=== PATIENT | male | born 1960 | race Caucasian/White ===

== ENCOUNTER 2020-08-17 09:28 | Emergency (ER) | payer OTHER ==
--- OUTSIDE RECORDS SUMMARY | 2020-08-17 09:31 | XMS REPORT | Summary of Care ---
:1960 Author Organization [facility] Address [address] [place] [id number] Care Team Providers Name Role Phone Charisma Rodriguez Primary Care Provider Reason for Referral (Routine) Status Reason Specialty Diagnoses / Referred By Referred To Procedures Contact Contact Closed Diagnostic Diagnoses Dysphagia, unspecified type Jensen, Radiology Procedures [place] MODIFIED BARIUM SWALLOW Aundrea J [address] [place] [address] Reason for Visit (Routine) Status Reason Specialty Diagnoses / Referred By Referred To Procedures Contact Contact Closed Diagnostic Diagnoses Dysphagia, unspecified type Jensen, Radiology Procedures [place] MODIFIED BARIUM SWALLOW Aundrea J [address] [place] [address] Encounter Details Date Type Department Care Team Description 08/16/2020 Hospital Encounter [facility] Arrived [facility] [address] [place], [place] [id number] [place] [phone] Allergies Not on Filedocumented as of this encounter (statuses as of 08/17/2020) Medications Not on filedocumented as of this encounter (statuses as of 08/17/2020) Active Problems Not on filedocumented as of this encounter (statuses as of 08/17/2020) Social History Tobacco Use Types Packs/Day Years Used Date Never Assessed Sex Assigned at Date Recorded Not on file COVID-19 Exposure Response Date Recorded In the last month, have you been in contact with No / Unsure 08/16/2020 1:21 PM CDT someone who was confirmed or suspected to have Coronavirus / COVID-19? documented as of this encounter Last Filed Vital Signs Not on filedocumented in this encounter Plan of Treatment Health Maintenance Due Date Last Done Comments HEPATITIS C (HCV) SCREEN 1960 Depression Screening 1971 DTaP,Tdap,and Td Vaccines (1 - 1978 Tdap) COLON CANCER SCREENING ANNUAL 2009 FIT/FOBT COLON CANCER SCREENING FIT DNA 2009 EVERY 3 YEARS COLON CANCER SCREENING 2009 SIGMOIDOSCOPY EVERY 5 YEARS COLONOSCOPY 2009 Colorectal Cancer Screening 2009 Zoster Recombinant Vaccine 2009 (SHINGRIX) (1 of 2) INFLUENZA VACCINE (#1) 2020 PNEUMOCOCCAL 0-64 YEARS COMBINED Aged Out No longer eligible based on SERIES patient's age to complete this topic documented as of this encounter Procedures Procedure Name Priority Date/Time Associated Diagnosis Comme nts [place] MODIFIED BARIUM Routine 08/16/2020 1:55 PM Dysphagia, Re sults for this SWALLOW CDT unspecified type procedure a re in the results section. documented in this encounter Results [place] MODIFIED BARIUM SWALLOW (08/16/2020 1:55 PM CDT) Specimen Narrative Performed At HISTORY: Dysphagia. PACS/VR/DOSE TECHNIQUE: Swallowing function was evalu ated with the patient sitting upright on chair, using video-assisted C-arm fluorosco py, in the presence of speech therapist. Swallowing function was evaluated using thin barium, thick barium, barium mixed with pudding, piece of edy cracker. FINDINGS: Swallowing function appeared n ormal. Patient was able to form bolus of food, initiation of swallowing without any si gnificant difficulty and the food material as well as barium flowed through the cervical esophagus without any obstruction or aspiration. Trans ient penetration of thin barium was noted on the surface of the aryepiglottic folds without aspiration into the larynx or trachea. CONCLUSIONS: Transient penetration of thin barium onto the surface of the aryepiglottic folds without aspiration i nto the larynx or trachea noted, otherwise normal dysphagiogram study. Procedure Note [facility], Radiant Results Inft User - 2019 2:03 PM CDT HISTORY: Dysphagia. TECHNIQUE: Swallowing function was evalu ated with the patient sitting upright on chair, using video-assisted C -arm fluoroscopy, in the presence of speech therapist. Swallowing function was evaluated using thin barium, thick barium, barium mixed with pudding, piece of edy cracker. FINDINGS: Swallowing function appeared n ormal. Patient was able to form bolus of food, initiation of swallowing without any significant difficulty and the food material as well as barium flowed through the cervical esophagus without any obstruction or asp iration. Transient penetration of thin barium was noted on the surface of the aryepiglottic folds without aspiration into the larynx or trachea. CONCLUSIONS: Transient penetration of th in barium onto the surface of the aryepiglottic folds without aspiration i nto the larynx or trachea noted, otherwise normal dysphagiogram study. Performing Organization Address City/State/Zipcode Phone Number PACS/VR/DOSE documented in this encounter Visit Diagnoses Diagnosis Dysphagia, unspecified type documented in this encounter documented as of this encounter
--- OUTSIDE RECORDS SUMMARY | 2020-08-17 09:31 | XMS REPORT | Clinical Summary ---
:1960 Author Organization [facility] Address [address] [place] [address] Care Team Providers Name Role Phone MD Michael Primary Care Provider Allergies Active Allergy Reactions Severity Noted Date Comments Penicillins Anaphylaxis High 12/31/2019 Shellfish Derived Other (See Comments) High 12/31/2019 's top breathing' Medications Medication Sig Dispensed Refills Start Date End Date Status bisoprolol (ZEBETA) 2.5 mg every 0 11/23/2019 Active 5 MG tablet morning. irbesartan (AVAPRO) every morning. 0 11/23/2019 Active 300 MG tablet simvastatin (ZOCOR) Take 40 mg by 0 Active 40 MG tablet mouth every morning. Xyosted 100 mg/0.5 INJECT 100 MG 2 mL 5 08/07/2020 Active mL auto-injector UNDER THE SKIN EVERY 7 DAYS MONOVISC 88 mg/4 mL 0 11/11/2019 0 Discontinued syringe keTOROlac (TORadol) Take 1 tablet 20 tablet 0 03/21/202003/28 10 mg tablet (10 mg total) by mouth every 6 (six) hours as needed for moderate pain for up to 7 days. testosterone Inject 100 mg 4 mL 0 06/21/2020 07/06/2020 D iscontinued enanthate (Xyosted) under the skin 100 mg/0.5 mL every 7 days. 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 04/21/2020 Travel 04/05/2020 Office Visit Urology Eusebio Meredith, Hypogonadism male (Primary Dx) 04/05/2020 Travel 03/21/2020 Surgery Urology Eusebio Meredith, PENILE PLICA TION 03/21/2020 Anesthesia Event Urology Taiwo Castillo, Tali Nunez, ART INSTRUCTOR 03/21/2020 Hospital Encounter Urology Eusebio Meredith Peyron ie disease (Primary Dx) 03/10/2020 Pre-Admit Testing Pre-Admission Eusebio Meredith, Preop testing Appointment Testing (Primary Dx) 03/10/2020 Travel 02/09/2020 Telephone Urology Eusebio Meredith MD 12/31/2019 Pre-Admit Testing Pre-Admission Eusebio Meredith, Preop testing Appointment Testing (Primary Dx) 12/31/2019 Office Visit Urology Eusebio Meredith Peyronie dis ease (Primary Dx); Male erectile d ysfunction, unspecified 11/23/2019 Transcribe Orders Urology Eusebio Meredith, Male er ectile MD dysfunction, unspecified (Pr imary Dx) after 08/17/2019 Surgical History Surgery Date Site/Laterality Comments KNEE SURGERY 11/03/2015 - 11/02/2016 Left fracture a nd ligament repair BIOPSY, PENIS 03/21/2020 N/A Procedure: PENIL E PLICATION; Surgeon: Eusebio Meredith MD; Location: [facility] IN OR; Service: Urology; Latera lity: N/A; Medical History Medical History Date Comments Hypercholesteremia Hypertension Arthritis Exercises 3 to 4 times per week rowing 3 -4x/wk x 15 mins/denies chest pain/sob Anesthesia NHAP/NFHAP Family History Relation Name Status Comments Father Mother Alive Social History Tobacco Use Types Packs/Day Years Used Date Never Smoker Smokeless Tobacco: Never Used Alcohol Use Drinks/Week oz/Week Comments Yes moderate drinker Sex Assigned at Date Recorded Not on file COVID-19 Exposure Response Date Recorded In the last month, have you been in contact with No / Unsure 07/24/2020 10:58 AM CDT someone who was confirmed or suspected to have Coronavirus / COVID-19? Last Filed Vital Signs Vital Sign Reading Time Taken Comments Blood Pressure 138/86 03/21/2020 11:13 AM CDT Pulse 59 03/21/2020 11:13 AM CDT Temperature 36.2 C (97.1 F) 03/21/2020 11:13 AM CDT Respiratory Rate 19 03/21/2020 11:13 AM CDT Oxygen Saturation 98% 03/21/2020 11:13 AM CDT Inhaled Oxygen Concentration - - Weight 96.8 kg (213 lb 8 oz) 03/21/2020 6:44 AM CDT Height 177.8 cm (5' 10") 03/10/2020 1:09 PM CDT Body Mass Index 30.63 03/10/2020 1:09 PM CDT Plan of Treatment Date Type Specialty Care Team Description 09/06/2020 Office Visit [facility]rology [facility]eredith [facility] [address] [facility] [address] [place], [place] [address] [phone] Health Maintenance Due Date Last Done Comments COLONOSCOPY SCREENING 2009 SHINGLES VACCINES (#1) 2009 INFLUENZA VACCINE 06/03/2020 Procedures Procedure Name Priority Date/Time Associated Diagnosis Comme nts PROLACTIN LEVEL Routine 04/21/2020 2:55 Male hypogonadism Res ults for this PM CDT procedure are i n the results section. FSH AND LH Routine 04/21/2020 2:55 Male hypogonadism Result s for this PM CDT procedure are i n the results section. PSA, TOTAL AND FREE Routine 04/21/2020 2:55 Benign localized Results for this PM CDT hyperplasia of procedure are in prostate with the results urinary retention section. CBC WITH PLATELET AND Routine 04/21/2020 2:55 Male hypogonadi sm Results for this DIFFERENTIAL PM CDT procedure are i n the results section. ESTRADIOL LEVEL Routine 04/21/2020 2:55 Male hypogonadism Res ults for this PM CDT procedure are i n the results section. TESTOSTERONE LEVEL, Routine 04/21/2020 2:55 Male hypogonadism Results for this FREE AND TOTAL, MALE PM CDT procedu re are in the results section. TESTOSTERONE LEVEL, Routine 04/05/2020 3:19 Hypogonadism male Results for this FREE AND TOTAL, MALE PM CDT procedu re are in the results section. OH AN ELECTIVE Routine 03/21/2020 8:12 Results f or this ENDOTRACHEAL AIRWAY AM CDT procedur e are in the results section. BIOPSY, PENIS 03/21/2020 7:58 Peyronie's disease AM CDT Case Notes REQ 1430 START, EST 1 HR Special Needs REQ 1430 START, EST 1 HR COVID BIOREF (NCOVB) Routine 03/10/2020 1:25 PM Preop testing Results for this CDT procedure are i n the results section. ESTIMATED GFR Routine 03/10/2020 1:02 PM Results for this CDT procedure are i n the results section. URINALYSIS SCREEN AND Routine 03/10/2020 1:02 PM Preop testin g Results for this MICROSCOPY, WITH REFLEX CDT proc edure are in TO CULTURE the results section. PARTIAL THROMBOPLASTIN Routine 03/10/2020 1:02 PM Preop testi ng Results for this TIME (PTT) CDT procedure are i n the results section. PROTHROMBIN TIME WITH Routine 03/10/2020 1:02 PM Preop testin g Results for this INR CDT procedure are i n the results section. COMPREHENSIVE METABOLIC Routine 03/10/2020 1:02 PM Preop test ing Results for this PANEL CDT procedure are i n the results section. HC COMPLETE BLD COUNT Routine 03/10/2020 1:02 PM Preop testin g Results for this W/AUTO DIFF CDT procedure are i n the results section. URINE CULTURE Routine 03/10/2020 1:02 PM Results for this CDT procedure are i n the results section. ECG PRE/POST OP Routine 12/31/2019 9:58 AM Preop testing Resu lts for this GUEST RELATIONS OFFICER procedure are i n the results section. URINE CULTURE Routine 12/31/2019 9:50 AM Results for this GUEST RELATIONS OFFICER procedure are i n the results section. ESTIMATED GFR Routine 12/31/2019 9:44 AM Results for this GUEST RELATIONS OFFICER procedure are i n the results section. PROTHROMBIN TIME WITH Routine 12/31/2019 9:44 AM Preop testin g Results for this INR GUEST RELATIONS OFFICER procedure are i n the results section. PARTIAL THROMBOPLASTIN Routine 12/31/2019 9:44 AM Preop testi ng Results for this TIME (PTT) GUEST RELATIONS OFFICER procedure are i n the results section. URINALYSIS SCREEN AND Routine 12/31/2019 9:44 AM Preop testin g Results for this MICROSCOPY, WITH REFLEX GUEST RELATIONS OFFICER proc edure are in TO CULTURE the results section. COMPREHENSIVE METABOLIC Routine 12/31/2019 9:44 AM Preop test ing Results for this PANEL GUEST RELATIONS OFFICER procedure are i n the results section. CBC HEMOGRAM Routine 12/31/2019 9:44 AM Preop testing Results for this GUEST RELATIONS OFFICER procedure are i n the results section. after 08/17/2019 Results FSH and LH (04/21/2020 2:55 PM CDT) Pathologist [facility] Luteinizing hormone 2.9 1.7 - 8.6 mIU/mL [facility] Follicle stimulating 3.1 1.5 - 12.4 mIU/mL [facility] hormone Specimen Blood Narrative Performed At Performed at: [address] [place] [address] [id number] Field Marketing Associate: Kevin Guillaume MD, Phone: [phone] Performing Organization Address [facility] Phon e Number [facility] Prolactin level (04/21/2020 2:55 PM CDT) Pathologist [facility] Prolactin 5.8 4.0 - 15.2 ng/mL [facility] Specimen Blood Narrative Performed At Performed at: [address] [place] [address] [id number] Field Marketing Associate: Kevin Guillaume MD, Phone: [phone] Performing Organization Address [facility] Phon e Number [facility] Estradiol level (04/21/2020 2:55 PM CDT) Pathologist [facility] Estradiol 9.6Comment: Miller ECLIA 7.6 - 42.6 pg/mL [facility] methodology Specimen Blood Narrative Performed At Performed at: [address] [place] [address] [id number] [phone] Field Marketing Associate: Kevin Guillaume MD, Phone: [phone] Performing Organization Address [facility] Phon e Number [facility] CBC with platelet and differential (04/21/2020 2:55 PM CDT)Only the most recent of2 resultswithin the time period is included. Pathologist Sig nature WBC 5.2 3.4 - 10.8 x10E3/uL [facility] RBC 4.54 4.14 - 5.80 x10E6/uL [facility] HGB 14.7 13.0 - 17.7 g/dL [facility] HCT 42.7 37.5 - 51.0 % [facility] MCV 94 79 - 97 fL [facility] MCH 32.4 26.6 - 33.0 pg [facility] MCHC 34.4 31.5 - 35.7 g/dL [facility] RDW 12.9 11.6 - 15.4 % [facility] Platelet count 193 150 - 450 x10E3/uL [facility] Neutrophils 57 Not Estab. % [facility] Lymphocytes 28 Not Estab. % [facility] Monocytes 9 Not Estab. % [facility] Eosinophils 5 Not Estab. % [facility] Basophils 1 Not Estab. % [facility] Neutrophils, absolute 3.0 1.4 - 7.0 x10E3/uL [facility] Lymphocytes, absolute 1.4 0.7 - 3.1 x10E3/uL [facility] Monocytes, absolute 0.5 0.1 - 0.9 x10E3/uL [facility] Eosinophils, absolute 0.3 0.0 - 0.4 x10E3/uL [facility] Basophils, absolute 0.0 0.0 - 0.2 x10E3/uL [facility] Immature granulocytes 0 Not Estab. % [facility] Immature grans (abs) 0.0 0.0 - 0.1 x10E3/uL [facility] Specimen Blood Narrative Performed At Performed at: 01 [facility] [address] [place], [place] [phone] Field Marketing Associate: Kevin Guillaume MD, Phone: [phone] Performing Organization Address City/State/ZIP Code Phon e Number [facility] Testosterone level, free and total, male (04/21/2020 2:55 PM CDT)Only the most recent of2 resultswithin the time period is included. Testosterone 230 (L) 264 - 916 [facility] Comment: ng/dL Adult male reference interval is based on a population of healthy nonobese males (BMI <30) between 19 and 39 yea rs old. Medina et.al. JCEM 2017,102;1353-5403. PMID: 321766 03. Testosterone, free 4.2 (L) 6.6 - 18.1 [facility] 02 pg/mL Specimen Blood Narrative Performed At Performed at: - [facility] [place], [place] [address] 143 Field Marketing Associate: Kevin Guillaume MD, Phone: [phone] Performed at: 02 - [address] [id number] Field Marketing Associate: Barry Roblero MD, Phone: [phone] Performing Organization Address City/State/ZIP Code Phon e Number [facility] 02 PSA, total and free (04/21/2020 2:55 PM CDT) PSA 0.7 0.0 - 4.0 [facility] Comment: ng/mL Miller ECLIA methodology. According to the [place] [employer], Seru m PSA should decrease and remain at undetectable levels after radic al prostatectomy. The AUA defines biochemical recurrence as an initial PSA value 0.2 ng/mL or greater followed by a subsequen t confirmatory PSA value 0.2 ng/mL or greater. Values obtained with different assay methods or kits c annot be used interchangeably. Results cannot be interpreted as abso lute evidence of the presence or absence of malignant disease. PSA, free 0.25Comment: Miller N/A ng/mL [facility] ECLIA methodology. PSA, free percent 35.7 % [facility] Comment: The table below lists the probability of prostate canc er for men with non-suspicious DELIO results and total PSA betw een 4 and 10 ng/mL, by patient age (Andrea et al, STARLA 1 998, 279:1542). % Free PSA 50-64 y r 65-75 yr 0.00-10.00% 56% 55% 10.01-15.00% 24% 35% 15.01-20.00% 17% 23% 20.01-25.00% 10% 20% >25.00% 5% 9% Please note: Andrea et al did not make specific recommendations regarding the use of percent free PSA for any other po pulation of men. Specimen Blood Narrative Performed At Performed at: - [facility] [place], [place] [id number] 143 Field Marketing Associate: Kevin Guillaume MD, Phone: [phone] Performing Organization Address City/State/ZIP Code Phon e Number [facility] Airway (03/21/2020 8:12 AM CDT) Narrative Performed At Brynn Hernandez 03/21/2020 8:12 AM Airway Performed by: Brynn Hernandez Authorized by: Taiwo Castillo DO Location: OR Urgency: Elective Difficult Airway: No Performed by: resident/MANAGER SUMMER/AA Preoxygenated with 100% O2: Yes Mask Ventilation: Assisted mask Final Airway Type: Endotracheal airway Final Endotracheal Airway: ETT Cuffed: Yes Technique Used: Video laryngoscopy Devices/Methods Used in Placement: Int ubating stylet Insertion Site: Oral Blade Type: Nael Laryngoscope Blade/Videolaryngoscope Matthias de Size: 3 ETT Size (mm): 8.0 Cuff at minimum occlusion pressure: Yes Measured from: Lips ETT to Lips (cm): 23 Placement Verified by: CO2 detection, di rect visualization and equal breath sounds Laryngoscopic view: Grade I - full vie w of glottis Number of Attempts at Approach: 2 COVID BioRef (NCOVB) (03/10/2020 1:25 PM CDT) Pathologist [facility] COVAL BioRef Not Detected [facility] Comment: Source Nasopharyngeal Swab Testing performed at [facility] [address] [place] [address] NOTE: Please consider re-collection of a new specimen, if clinically indicated. NOTE: The COVID-19 assay has been cleared by the U.S. Food and Drug Administration under the Emergency Use Authorization ( EUA). [facility] is designated as a high complexity labora tory by the Clinical Laboratory Improvement Amendments of 1988(CLIA) and is qualified to perform this test. ASSAY INFORMATION: Real Time RT-PCR Specimen Nasopharyngeal Performing Organization Address City/[facility]/ZIP Code Phon e Number [facility] DEPARTMENT OF PATHOLOGY [address] [place] [address] AND [facility] [address] [place] [phone] Urinalysis screen and microscopy, with reflex to culture (03/10/2020 1:02 PM CDT)Only the most recent of2 resultswithin the time period is included. Pathologist Sig nature Specimen site Clean catch [facility] Color, UA Yellow [facility] Appearance, UA Clear [facility] Specific gravity, 1.027 1.001 - 1.035 [facility] pH, UA 6.0 5.0 - 8.5 [facility] Protein, UA Negative Negative [facility] Glucose, UA Negative Negative [facility] Ketones, UA Negative Negative [facility] Bilirubin, UA Negative Negative [facility] Blood, UA Negative Negative [facility] Nitrite, UA Negative Negative [facility] Urobilinogen, UA 2.0 (A) <2.0 [facility] Leukocyte esterase, Negative Negative [facility] WBC, UA <1 0 - 1 /HPF [facility] RBC, UA <1 0 - 5 /HPF [facility] Bacteria, UA Few None seen [facility] Yeast, UA None seen [facility] Yeast with None seen [facility] pseudohyphae, HOSPITAL Specimen Urine Performing Organization Address City/[facility] Phon e Number [facility] DEPARTMENT OF PATHOLOGY AND [address] [place] [phone] Estimated GFR (03/10/2020 1:02 PM CDT)Only the most recent of2 resultswithin the time period is included. Estimated GFR 88 mL/min/1.73 [facility] Comment: m2 HOSPITAL Catergory Units Interpretation G1 >=90 Normal or high G2 60-89 Mildly decreased G3a 45-59 Mildly to moderately decreas ed G3b 30-44 Moderately to severely decre ased G4 15-29 Severely decreased G5 <15 Kidney failure The eGFR was calculated using the Chronic Kidney Disea se Epidemiology Collaboration (CKD-EPI) equation. Interpretation is based on recommendations of the National Kidney Foundation-Kidney Disease Outcomes [place]rb[place] lity Initiative (NKF-KDOQI) published in 2014. Specimen Performing Organization Address City/[facility] Phon e Number [facility] DEPARTMENT OF PATHOLOGY AND [address] [place], [place] [phone] [address] [address] Partial thromboplastin time, activated (03/10/2020 1:02 PM CDT)Only the most recent of2 resultswithin the time period is included. PTT 25.2 23.0 - 36.0 [facility] Comment: [facility] PTT therapeutic range for unfractionated heparin is 61.0-112.0 seconds which corresponds to Anti-Xa 0.3-0.7 U/ml. Specimen Blood Performing Organization Address City/[facility]/ZIP [facility] Phon e Number [facility] DEPARTMENT OF PATHOLOGY AND [address] [place] [phone] Prothrombin time with INR (03/10/2020 1:02 PM CDT)Only the most recent of2 resultswithin the time period is included. Pathologist [facility] Prothrombin time 12.9 11.5 - 14.5 [facility] INR 1.0 [place] Comment: ENEDINA The International Normalized Ratio (INR) is a therapeu [facility] monitoring tool for patients who are stable on oral anticoagulant therapy. An INR of 2.0-3.0 is suggested for deep vein thrombosis/pulmonary embolism. Specimen Blood Performing Organization Address City/[facility] Phon e Number [facility] DEPARTMENT OF PATHOLOGY AND [address] [place] [phone] Urine culture (03/10/2020 1:02 PM CDT)Only the most recent of2 resultswithin the time period is included. Pathologist Sig nature Urine culture SEE COMMENTComment: [facility] Bacteriuria screen HOSPITAL negative. Specimen Performing Organization Address City/[facility] Phon e Number [facility] DEPARTMENT OF PATHOLOGY AND [address] [place] [phone] Comprehensive metabolic panel (03/10/2020 1:02 PM CDT)Only the most recent of2 resultswithin the time period is included. Pathologist [facility] Sodium 141 135 - 148 [facility] mEq/L [facility] Potassium 4.1 3.5 - 5.0 [facility] mEq/L [facility] Chloride 104 98 - 112 [facility] mEq/L [facility] CO2 21 (L) 24 - 31 mEq/L [facility] Anion gap 16@ANIO (H) 7 - 15 mEq/L [facility] BUN 15 8 - 23 mg/dL [facility] Creatinine 0.94 0.70 - 1.20 [facility] mg/dL HOSPITAL Glucose 97 65 - 99 mg/dL [facility] Calcium 9.6 8.8 - 10.2 [facility] mg/dL [facility] Protein 6.9 6.3 - 8.3 [facility] Comment: g/dL HOSPITAL - 4.6-7.0 g/dL 1 week 4.4-7.6 g/dL 7 months-1year 5.1-7.3 g/dL 1-2 years 5.6-7.5 g/dL >3 years 6.0-8.0 g/dL 18-150 6.3-8.3 g/dL Albumin 4.0 3.5 - 5.0 [facility] g/dL HOSPITAL A/G ratio 1.4 0.7 - 3.8 [facility] Alkaline phosphatase 74 40 - 129 U/L [facility] AST 22 10 - 50 U/L [facility] ALT 30 5 - 50 U/L [facility] Total bilirubin 0.4 0.0 - 1.2 [facility] mg/dL HOSPITAL Specimen Blood Performing Organization Address City/[facility] Phon e Number [facility] DEPARTMENT OF PATHOLOGY AND [address] [place] [phone] GENOMIC MEDICINE [address] [address] ECG Pre/Post Op (12/31/2019 9:58 AM GUEST RELATIONS OFFICER) Pathologist Sig nature Ventricular rate 49 [facility] Atrial rate 49 [facility] OH interval 236 [facility] QRSD interval 96 [facility] QT interval 454 [facility] QTC interval 410 [facility] P axis 1 57 [facility] QRS axis 1 16 [facility] T wave axis 31 [facility] EKG impression Marked sinus [facility] MUSE bradycardia with 1st degree AV block-Abnormal ECG-No previous ECGs available-Electronicall y Signed By Swapnil ABDI, Didier Olivas ([id number]) on 12/31/2019 12:05:23 PM Specimen Narrative Performed At This result has an attachment that is no t available. Performing Organization Address [facility] Phon e Number [facility] [address] [place] [address] CBC hemogram (12/31/2019 9:44 AM GUEST RELATIONS OFFICER) Pathologist Sig nature WBC 4.67 4.50 - 11.00 k/uL [facility] RBC 4.59 4.40 - 6.00 m/uL [facility] HGB 14.8 14.0 - 18.0 g/dL [facility] HCT 43.7 41.0 - 51.0 % [facility] MCV 95.2 82.0 - 100.0 fL [facility] MCH 32.2 27.0 - 34.0 pg [facility] MCHC 33.9 31.0 - 37.0 g/dL [facility] RDW - SD 43.3 37.0 - 55.0 fL [facility] MPV 10.2 8.8 - 13.2 fL [facility] Platelet count 201 150 - 400 k/uL [facility] Nucleated RBC 0.00 /100 WBC [facility] Specimen Blood Performing Organization Address City/State/ZIP Code Phon e Number [facility] DEPARTMENT OF PATHOLOGY AND [address] [place] [phone] GENOMIC MEDICINE [address] [address] after 08/17/2019 (Home) [place] [address] Advance Directives For more information, please contact: [phone] Type Date Recorded Patient Contract Attorney Explanati on Advance Directives, Living Will and Medical Power of Education Consultant
--- OUTSIDE RECORDS SUMMARY | 2020-08-17 09:31 | XMS REPORT | Summary of Care ---
:1960 Author Organization [facility] - Health Address [address] [place] [id number] Care Team Providers Name Role Phone Charisma Rodriguez Primary Care Provider Reason for Visit Reason Comments Speech Therapy Encounter Details Date Type Department Care Team Description 08/16/2020 Ancillary Visit [facility] Speech Luis Barboza MD [address] [place] [address] Problems with Therapy- [place] Anne Ng, AIR TRAFFIC CONTROL OPERATOR [address] [place] [address] swallowing and Professional Office masticat ion (Primary Building Dx) [address] [place] [address] [address] [place] [address] Allergies Not on Filedocumented as of this encounter (statuses as of 08/16/2020) Medications Not on filedocumented as of this encounter (statuses as of 08/16/2020) Active Problems Not on filedocumented as of this encounter (statuses as of 08/16/2020) Social History Tobacco Use Types Packs/Day Years [...] Signs Not on filedocumented in this encounter Progress Notes Anne Ng, AIR TRAFFIC CONTROL OPERATOR - 08/16/2020 2:30 PM CDTModified Barium Swallow Speech-Language Pathology Services Jimi Santillan : 1960 Age: [age] year old Sex: male LEVI: 08/16/2020 Time In/Out: [id number] Referring Physician: Aundrea Jensen MD Date of Referral: 08/07/2020 Medical Diagnosis: dysphagia, unspecified Reason for Referral: r/o aspiration; objectively evaluate the oropharyngeal swallow with imaging SUBJECTIVE: Patient ambulated independently to upright stationary chair. HE reports some instances over the past year of having immediate choking sensation. He describes one instance of waking up to get a glass of water in the night and feeling his throat "tighten and cut off" immediately; he had difficulty catching his breath after this. Sometimes this sensation is relieved if he spits out liquids.He also reports sensation of food sticking in his sternal area. OBJECTIVE: Jimi Santillan was seen for modified barium swallow study (MBS). Patient is a 59 year old male with no significant PMH. Pertinent Imaging: No final results containing an impression from the past 30 days were found. Previous AIR TRAFFIC CONTROL OPERATOR Services/Swallow History: None No past medical history on file. No past surgical history on file. General Behavior: Alert and Cooperative Hearing: Within Functional Limits for speech Oral Mechanism: Structure: dentate, natural dentition and moist oral mucosa Function: Unremarkable - no facial droop/weakness, no subjective trismus, symmetric labial spread and pucker, lingual protrusion midline with equal lateralization, symmetrical palatal retraction, no dysphonia, no dysarthria, no apraxia Respiratory Status: room air Orientation/Cognition: - Patient oriented to: person, place, time and situation - Response type: verbal - If verbal, describe speech: clear - Follows 1-step commands: Yes EVALUATION: Patient presented with barium in thin liquids, nectar-thick liquids, puree and chewable solid consistencies viewed under fluoroscopy in the lateral plane with Dr. Gloria from radiology. COMPONENTS AND SCORES ORAL IMPAIRMENT Component 1-Lip Closure: 0= No labial escape Component 2-Tongue Control During Bolus Hold: 2= Posterior escape of less than half of bolus Component 3-Bolus Preparation/Mastication: 0= Timely & efficient chewing and mashing Component 4-Bolus Transport/Lingual Motion: 0= Brisk tongue action Component 5-Oral Residue: 2= Residue collection on oral structures and Location C= Tongue Component 6-Initiation of Pharyngeal Swallow: 0= Bolus head at posterior angle of ramus (first hyoidexcursion) with solids and 1= Bolus head in valleculae with liquids PHARYNGEAL IMPAIRMENT Component 7-Soft Palate Elevation: 0= No bolus between soft palate (SP)/pharyngeal wall (PW) Component 8-Laryngeal Elevation: 0= Complete superior movement of thyroid cartilage with complete approximation of arytenoids to epiglottic petiole Component 9-Anterior Hyoid Excursion: 0= Complete anterior movement Component 10-Epiglottic Movement: 1= Partial inversion Component 11-Laryngeal Vestibular Closure-Height Swallow: 1= Incomplete; narrow column air/contrast in laryngeal vestibule Component 12-Pharyngeal Stripping Wave: 0= Present - complete Component 13-Pharyngeal Contraction (A/P view only): NA Component 14-Pharyngoesophageal Segment Openin= Complete distension and complete duration; no obstruction of flow Component 15-Tongue Base (TB) Retraction: 1= Trace column of contrast or air between TB and PW Component 16-Pharyngeal Residue: 2= Collection of residue within or on pharyngeal structures and LOCATION A: Tongue Base ESOPHAGEAL IMPAIRMENT Component 17-Esophageal Clearance Upright Position: 1= Esophageal retention seen with purees PENETRATION/ASPIRATION thin liquid: Penetration occurred: intermittent, flash, to the supraglottic space, during the swallow and mild amount. Aspiration did not occur: N/A PAS: 2-enters the airway, remains above vocal folds and is ejected nectar thick liquid: Penetration did not occur: N/A. Aspiration did not occur: N/A PAS: 1-material does not enter airway puree: Penetration did not occur: N/A. Aspiration did not occur: N/A PAS: 1- material does not enter airway chewable solids: Penetration did not occur: N/A. Aspiration did not occur: N/A PAS: 1-material does not enter airway Penetration/Aspiration Scale Legend: 1-material does not enter airway 2-enters the airway, remains above vocal folds and is ejected 3-enters the airway, remains above vocal cords and is not ejected 4-enters the airway, contacts the vocal folds and is ejected 5-enters the airway, contacts the vocal folds and is not ejected 6-enters the airway, passes below the vocal folds and is ejected into the larynx or out of the airway 7-enters the airway, passes below the vocal folds and is not ejected from the trachea despite effort 8-enters the airway, passes below the vocal folds and no effort is made to eject FACILITATIVE TECHNIQUES ATTEMPTED: N/A Images/loops available for review in PACS. Patient/Family Education: Provided verbally. Reviewed MBS loops/images. Discussed findings of evaluation, recommendations and AIR TRAFFIC CONTROL OPERATOR plan of care. Patient/family verbalized understanding and is in agreement with plan of care. Patient/Family Goal: safe po intake and improved swallow function ASSESSMENT: Jimi Santillan presents with mild oropharyngeal dysphagia of unknown etiology with primary impairment in both airway protection and pharyngeal efficiency. Patient had decreased lingual control, resulting in posterior escape of less than half of liquid boluses and masticated materials, and more than half of puree bolus. Patient also had decreased bolus control, resulting in oral stasis on tongue which required cued secondary swallow to clear. Patient demonstrated delay in swallow initiation to the valleculae with thin and nectar-thick liquids; swallow initiation of purees and masticated materials appeared timely. Patient demonstrated good hyolaryngeal elevation. However, he had delayed and reduced epiglottic inversion, which resulted in penetration of thin liquids above the vocal folds (PAS 2). Penetration cleared spontaneously. Patient tolerated nectar-thick liquids, purees, and masticated materials with no penetration/aspriration (PAS 1). Decreased lingual control resulted in pharyngeal stasis on the base of the tongue with all materials, which cleared with cued, secondary swallow. Patient appears safe to continue PO diet as detailed below. Impressions: mild oropharyngeal dysphagia, single instance of penetration with thin liquids (PAS 2). Prognosis is good for safe po intake with adherence to swallow precautions due to above findings. PLAN: 1. Recommend patient continue a regular-textured diet with thin liquids and swallow precautions: sitfully upright/chair, small single sips/bites, limit distractions while eating/drinking and remain upright for 30 minutes after meals No further AIR TRAFFIC CONTROL OPERATOR needs, this service is signing off. Please re-consult if indicated, thank you. Anne Ng MS, [facility]-AIR TRAFFIC CONTROL OPERATOR Speech-Language Pathologist Phone/Text # [phone] documented in this encounter Plan of Treatment Health [...] this topic documented as of this encounter Results Not on filedocumented in this encounter Visit Diagnoses Diagnosis Problems with swallowing and mastication - Primary documented in this encounter documented as of this encounter
--- OUTSIDE RECORDS SUMMARY | 2020-08-17 09:32 | XMS REPORT | Continuity of Care Document ---
:1960 Author Organization [facility] t Address [address] [place] [address] Care Team Providers Name Role Phone Michael ABDI Primary Care Physician Radiology Attending Clinician Unavailable Hernandez RIVERA Attending Clinician Unavailable Viri ABDI Attending Clinician Sha LEUNG Attending Clinician Unavailable Anna BRUNER Attending Clinician Mark Tim APRN Attending Clinician VIRI Admitting Clinician Unavailable Payers Payer Name Policy Type Policy Effective Date Expiration Date Sour ce Number AETNAAETNA [id number] [employer], 00:00:00 Confucianism ALAN/[id number] /-Present O Problems This patient has no known problems. Allergies, Adverse Reactions, Alerts Allergy Allergy Status Severity Reaction(s) Onset Inactive Treating Comm ents Source Name Type Date Date Clinician Penicill Propensi Active Anaphylaxis 2019-0 [place] to 2-28 Methodi adverse 00:00: st reaction 00 s to drug Shellfis Propensi Active Other (See 'stop [place] to Comments) 2-28 breathing Meth marguerite Derived adverse 00:00: ' st reaction 00 s to drug Social History Social Habit Start Date Stop Date Quantity Comments Source Sex Assigned At [facility] ethodist Exposure to Not sure [place] Metho dist SARS-CoV-2 (event) Tobacco use and 2020-04-21 2020-04-21 Never used [facility] ethodist exposure 00:00:00 00:00:00 Alcohol intake 2020-04-21 2020-04-21 Current drinker [place] [facility] 00:00:00 00:00:00 of alcohol (finding) Alcohol Comment 2019-12-31 2019-12-31 moderate drinker Daryl ston Confucianism 00:00:00 00:00:00 Smoking Status Start Date Stop Date Source Never smoker [facility] [facility] t Medications Ordered Filled Start Stop Current Ordering Indication Dosage Frequency Signature Comments Components Source Medication Medication Date Date Medication? Clinician (SIG) Name Name Eben 100 2019-11 Yes INJECT 100 [place] mg/0.5 mL 0-05 MG UNDER Method i auto-inject 00:00: THE SKIN st or 00 EVERY 7 DAYS Xyosted 100 2020- No INJECT Daryl ston mg/0.5 mL 9 10-05 100MG (ONE Met hodi auto-inject 00:00: 00:00 AUTO-INJEC st or 00 :00 TOR) UNDER THE SKIN ONCE WEEKLY testosteron 2019- No 100mg Q1W Inject 100 [place] e enanthate 06-21 09-03 mg under Met hodi (Xyfloydd) 00:00: 00:[address] 100 mg/0.5 00 :00 every 7 mL days. auto-inject or simvastatin Yes 40mg QD Take 40 mg [place] (ZOCOR) 40 6-03 by mouth Metho di MG tablet 14:01: every st 39 morning. keTOROlac 2019- No 10mg Q6H Take 1 [place] (TORadol) 03-21 05-26 tablet (10 Met hodi 10 mg 00:00: 23:59 mg total) st tablet 00 :00 by mouth every 6 (six) hours as needed for moderate pain for up to 7 days. bisoprolol 2019- Yes 2.5mg QD 2.5 mg [place] (ZEBETA) 5 - every Methodi MG tablet 00:00: morning. st 00 irbesartan 2019-0 Yes QD every [place] (AVAPRO) - morning. Methodi 300 MG 00:00: st tablet 00 MONOVISC 88 2019- No [place] mg/4 mL 11-11 Methodi syringe 00:00: 00:00 st 00 :00 Vital Signs Vital Name Observation Time Observation Value Comments Source Systolic blood 2020-03-21 11:13:22 138 mm[Hg] [place] [facility]ucianism pressure Diastolic blood 2020-03-21 11:13:22 86 mm[Hg] [place] [facility]ian[facility] pressure Heart rate 2020-03-21 11:13:22 59 /min Terence Akers Body temperature 2020-03-21 11:13:22 36.17 Temitope [place] [facility]ism Respiratory rate 2020-03-21 11:13:22 19 /min [place] [facility] Oxygen saturation in 2020-03-21 11:13:22 98 /min Terence Akers Arterial blood by Pulse oximetry Body weight 2020-03-21 06:44:00 96.843 kg Terence Akers BMI 2020-03-21 06:44:00 30.63 kg/m2 Terence Akers Body height 2020-03-10 13:09:00 177.8 cm Terence Akers Procedures Procedure Date / Time Performing Clinician Source Performed TESTOSTERONE LEVEL, FREE 2020-04-21 14:55:00 Max Meredith AND TOTAL, MALE ESTRADIOL LEVEL 2020-04-21 14:55:00 Max Meredith CBC WITH PLATELET AND 2020-04-21 14:55:00 Max Meredith DIFFERENTIAL PSA, TOTAL AND FREE 2020-04-21 14:55:00 Max Meredith FSH AND LH 2020-04-21 14:55:00 Max Meredith PROLACTIN LEVEL 2020-04-21 14:55:00 Max Meredith TESTOSTERONE LEVEL, FREE 2020-04-05 15:19:00 Max Meredith AND TOTAL, MALE DE AN ELECTIVE 2020-03-21 08:12:12 Brynn Hernandez ENDOTRACHEAL AIRWAY Cat BIOPSY, PENIS 2020-03-21 07:58:00 Max Meredith COVID BIOREF (NCOVB) 2020-03-10 13:25:00 Max Meredith URINE CULTURE 2020-03-10 13:02:00 Max Meredith HC COMPLETE BLD COUNT 2020-03-10 13:02:00 Max Meredith W/AUTO DIFF COMPREHENSIVE METABOLIC 2020-03-10 13:02:00 Viri, Max [place] [facility] PANEL PROTHROMBIN TIME WITH INR 2020-03-10 13:02:00 Max Meredith PARTIAL THROMBOPLASTIN 2020-03-10 13:02:00 Max Meredith on Confucianism TIME (PTT) URINALYSIS SCREEN AND 2020-03-10 13:02:00 Max Meredith Confucianism MICROSCOPY, WITH REFLEX TO CULTURE ESTIMATED GFR 2020-03-10 13:02:00 Max Meredith Meth oddanielle ECG PRE/POST OP 2019-12-31 09:58:28 Max Meredith Meth odist URINE CULTURE 2019-12-31 09:50:00 Max Meredith CBC HEMOGRAM 2019-12-31 09:44:00 Max Meredith oddanielle COMPREHENSIVE METABOLIC 2019-12-31 09:44:00 Max Meredith Confucianism PANEL URINALYSIS SCREEN AND 2019-12-31 09:44:00 Max Meredith Confucianism MICROSCOPY, WITH REFLEX TO CULTURE PARTIAL THROMBOPLASTIN 2019-12-31 09:44:00 Max Meredith on Confucianism TIME (PTT) PROTHROMBIN TIME WITH INR 2019-12-31 09:44:00 Max Meredith Confucianism ESTIMATED GFR 2019-12-31 09:44:00 Max Meredith Meth oddanielle Plan of Care Planned Activity Planned Date Details Comments Source Future Scheduled 2020-06-03 INFLUENZA VACCINE [place] [facility] Test 00:00:00 [code = INFLUENZA VACCINE] Future Scheduled 2009 COLONOSCOPY SCREENING Mike rodriguez Confucianism Test 00:00:00 [code = COLONOSCOPY SCREENING] Future Scheduled 2009 SHINGLES VACCINES [place] [facility] Test 00:00:00 (#1) [code = SHINGLES VACCINES (#1)] Encounters Start End Encounter Admission Attending Care Care Encounter Source Date/Time Date/Time Type Type Clinicians Facility Department ID 2020-08-16 2020-08-16 [facility] Radiology [facility] [id number] 13:00:00 23:59:00 Encounter Sharon [id number] [place] [id number] [place] [id number] 2020-08-16 2020-08-16 [id number] 15:21:10 16:06:10 Visit Anne Cho [id number] Jerzy [id number] Jho[place] [id number] [facility] 145 [facility] 2020-04-21 2020-04-21 Outpatient VIRI, [facility] [id number] [place] 00:00:00 00:00:[address] MAX [address] 2020-04-05 2020-04-05 Outpatient VIRI, [facility] [id number] [place] 00:00:00 00:00:00 MAX [address] 2020-03-21 2020-03-21 [id number] [place] 00:00:00 00:00:[address] MAX [address] 2020-03-10 2020-03-10 [facility] [id number] [place] 00:00:00 00:00:00 MAX [address] 2019-12-31 2019-12-31 Outpatient VIRI, [facility] [id number] 691 [place] 00:00:00 00:00:00 MAX [address] 2019-12-31 2019-12-31 [facility] [id number] 064 [place] 00:00:00 00:00:[address] MAX [address] Results Test Description Test Time Test Comments Results Result Comments Source Testosterone level, free and total, male 2020-04-27 09:08:00 Test Item Value Reference Range Interpretation Comme nts Testosterone (test code = 230 ng/dL 264-916 L Ad ult male reference interval 2986-8) is based on a p opulation ofhealthy nonob sandee males (BMI <30) between 19 and 39 years old.lima Haney t.al. JCEM 2017,102;1161-1 173. PMID: 73356668. Testosterone, free (test 4.2 pg/mL 6.6-18.1 L code = 2991-8) JOHN (test code = JOHN) Performed at: 01 - [facility] [address] [id number] Director: Kevin Guillaume MD, Phone: [phone] at: 02 - [facility] [address] [place], [place] [id number] Director: Barry Roblero MD, Phone: [phone] Lab Interpretation (test Abnormal code = 22072-9) [place] MethodistPSA, total and [id number] 10:09:00 Test Item Value Reference Range Interpretation Comments PSA (test code 0.7 ng/mL 0-4 Miller ECLIA = 2857-1) methodology.Acc ording to the [place] [employer], Se rum PSA shoulddecrease and remain at undet ectable levels after radicalprostate ctomy. The AUA defines biochemical rec urrence as an initialPS A value 0.2 ng/mL or gr eater followed by a subsequent confirmatoryPSA value 0.2 ng/mL or greater.Values obtained with different assay methods or kits cannot be usedinterchange ably. Results cannot be interpreted as absolute eviden ceof the presence or absence of jael gnant disease. PSA, free (test 0.25 ng/mL N/A Miller ECLIA code = 76500-7) methodology. PSA, free 35.7 % The table below lists percent (test the probabilit y of code = 01919-9) prostate can cer formen with non-suspic ious DELIO results and total PSA between4 an d 10 ng/mL, by patie nt age (Andrea et al , STARLA 1998,279:1542). % Arun e PSA 50-64 yr 65-75 yr 0.00-10.00% 56% 55% 10.01-15.00% 24% 35% 15.01-20.00% 17% 23% 20.01-25.00% 10% 20% >25.00% 5% 9%Plea se note: Andrea et al did not make sp ecific recommendations regarding the u se of perc ent free PSA for an y other population of men. JOHN (test code Performed at: 01 = JOHN) - [facility] [address] [place], [place] [id number] Director: Kevin Guillaume MD, Phone: [phone] [place] [facility] with platelet and [id number] 10:09:00 Test Item Value Reference Range Interpretation Comments WBC (test code = 5.2 3.4- 10.8 x10E3/uL 6690-2) RBC (test code = 4.54 4.14- 5.80 x10E6/uL 789-8) HGB (test code = 14.7 g/dL 13-17.7 718-7) HCT (test code = 42.7 % 37.5-51 4544-3) MCV (test code = 94 fL 79-97 787-2) MCH (test code = 32.4 pg 26.6-33 785-6) MCHC (test code = 34.4 g/dL 31.5-35.7 786-4) RDW (test code = 12.9 % 11.6-15.4 788-0) Platelet count (test 193 150- 450 x10E3/uL code = 777-3) Neutrophils (test code 57 % Not Estab. = 770-8) Lymphocytes (test code 28 % Not Estab. = 736-9) Monocytes (test code = 9 % Not Estab. 5905-5) Eosinophils (test code 5 % Not Estab. = 713-8) Basophils (test code = 1 % Not Estab. 706-2) Neutrophils, absolute 3.0 1.4- 7.0 x10E3/uL (test code = 751-8) Lymphocytes, absolute 1.4 0.7- 3.1 x10E3/uL (test code = 731-0) Monocytes, absolute 0.5 0.1- 0.9 x10E3/uL (test code = 742-7) Eosinophils, absolute 0.3 0.0- 0.4 x10E3/uL (test code = 711-2) Basophils, absolute 0.0 0.0- 0.2 x10E3/uL (test code = 704-7) Immature granulocytes 0 % Not Estab. (test code = 11567-1) Immature grans (abs) 0.0 0.0- 0.1 x10E3/uL (test code = 56081-7) JOHN (test code = JOHN) Performed at: [facility] [id number] Director: Kevin Guillaume MD, Phone: [phone] [place] MethodistEstradiol [id number] 10:09:00 Test Item Value Reference Range Interpretation Comments Estradiol (test 9.6 pg/mL 7.6-42.6 Miller ECLIA code = 2243-4) methodology JOHN (test code = Performed at: JOHN) - [address] [id number] Director: Kevin Guillaume MD, Phone: [phone] [place] MethodistProlactin [id number] 10:09:00 Test Item Value Reference Range Interpretation Comments Prolactin (test code = 5.8 ng/mL 4-15.2 2842-3) JOHN (test code = JOHN) Performed at: [facility] [id number] Director: Kevin Guillaume MD, Phone: [phone] [place] MethodistFSH and [id number] 10:09:00 Test Item Value Reference Range Interpretation Comments Luteinizing hormone 2.9 1.7- 8.6 mIU/mL (test code = 91808-0) Follicle stimulating 3.1 1.5- 12.4 mIU/mL hormone (test code = 40854-4) JOHN (test code = JOHN) Performed at: [facility] [address] [id number] Director: Kevin Guillaume MD, Phone: [phone] [place] IztkwguzeKznzmu2358-46-34 08:12:12Brynn Hernandez 03/21/2020 8:12 AMAirwayPerformed by: Brynn HernandezAuthorized by: Taiwo Castillo DO Location: ORUrgency: ElectiveDifficult Airway: No Performed by: resident/FILEMAKER DEVELOPER/AAPreoxygenated with 100% O2: Yes Mask Ventilation: Assisted maskFinal Airway Type: Endotracheal airwayFinal Endotracheal Airway: ETTCuffed: Yes Technique Used: Video laryngoscopyDevices/Methods Used in Placement: Intubating styletInsertion Site: OralBlade Type: MacintoshLaryngoscope Blade/Videolaryngoscope Blade Size: 3ETT Size (mm): 8.0Cuff at minimum occlusion pressure: Yes Measured from: LipsETT to Lips (cm): 23Placement Verified by: CO2 detection, direct visualization and equal breath sounds Laryngoscopic view: Grade I - full view of glottisNumber of Attempts at Approach: 2[facility] MethodistCOVID BioRef (NCOVB)2020-03-13 12:42:04 Test Item Value Reference Range Interpretation Comments COVID BioRef Not Detected Source Nasophar yngeal (NCOVB) (test SwabTesting pe rformed at code = 70224-1) [facility] [address] [place], [place] [id number] NOTE: Ple ase consider re-col lection of a new specim en, if clinically wyatt cated. NOTE: The COVID -19 assay has been cleare d by the U.S. Food and D rug Administration under the Emergency Use Authorization ( EUA). [facility] is designated as a high complexity labo ratory by the Clinical La boratory Improvement Coleen ndments of 1987(CLIA) a nd is qualified to pe rform this test. ASS AY INFORMATION: Re al Time RT-PCR [facility] MethodistUrinalysis screen and microscopy, with reflex to culture 2020-03-10 16:41:34 Test Item Value Reference Range Interpretation Comments Specimen site (test code = Clean catch 6223807) Color, UA (test code = 5778-6) Yellow Appearance, UA (test code = Clear 5767-9) Specific gravity, UA (test code = 1.027 1.001-1.035 5811-5) pH, UA (test code = 5803-2) 6.0 5.0-8.5 Protein, UA (test code = 18228-4) Negative Negative Glucose, UA (test code = 38542-5) Negative Negative Ketones, UA (test code = 2514-8) Negative Negative Bilirubin, UA (test code = Negative Negative 5770-3) Blood, UA (test code = 5794-3) Negative Negative Nitrite, UA (test code = 5802-4) Negative Negative Urobilinogen, UA (test code = 2.0 <2.0 A 86219-8) Leukocyte esterase, UA (test code Negative Negative = 5799-2) WBC, UA (test code = 5821-4) <1 0- 1 /HPF RBC, UA (test code = 87785-5) <1 0- 5 /HPF Bacteria, UA (test code = Few None seen 37505-6) Yeast, UA (test code = 72099-9) None seen Yeast with pseudohyphae, UA (test None seen code = 86625-4) Lab Interpretation (test code = Abnormal 07696-5) [facility] MethodistComprehensive metabolic [id number] 15:14:53 Test Item Value Reference Range Interpretation Comments Sodium (test code = 141 135- 148 mEq/L 2951-2) Potassium (test code = 4.1 3.5- 5.0 mEq/L 2823-3) Chloride (test code = 104 98- 112 mEq/L 2074-0) CO2 (test code = 2027-9) 21 24- 31 mEq/L L Anion gap (test code = 16@ANIO 7- 15 mEq/L H 02247-8) BUN (test code = 3094-0) 15 mg/dL 8-23 Creatinine (test code = 0.94 mg/dL 0.7-1.2 0-0) Glucose (test code = 97 mg/dL 65-99 5-7) Calcium (test code = 9.6 mg/dL 8.8-10.2 49816-5) Protein (test code = 6.9 g/dL 6.3-8.3 -[place] n 2885-2) 4.6-7.0 g/dL1 week 4.4-7 .6 g/dL7 months-1y ear 5.1-7 .3 g/dL1-2 years 5.6-7 .5 g/dL>3 years 6.0-8 .0 g/gG50-488 6.3-8 .3 g/dL Albumin (test code = 4.0 g/dL 3.5-5 1750-7) A/G ratio (test code = 1.4 0.7-3.8 1759-0) Alkaline phosphatase 74 U/L 40-129 (test code = 6768-6) AST (test code = 1920-8) 22 U/L 10-50 ALT (test code = 1742-6) 30 U/L 5-50 Total bilirubin (test 0.4 mg/dL 0-1.2 code = 1974-2) Lab Interpretation (test Abnormal code = 01201-9) Terence MethodistEstimated [id number] 15:14:53 Test Item Value Reference Range Interpretation Comments Estimated GFR (test 88 mL/min/1.73 m2 Adrian elizabeth Units code = 5488) InterpretationG 1 >=90 Normal or highG2 60-89 Mildly vtnkluoviE3k 45-59 Mildly to mode rately qlxbjbyozP1f 30-44 Moderately to severely decreasedG4 15-29 Severely decre asedG5 <15 Kidn ey failureThe eGFR was calculated usin g the Chronic Kidney Disease Epidemiology Co llaboration (CKD-EPI) equat ion. Interpretation is based on recommendations of the National Kidney Foundation-Kidn ey Disease Outcomes Qualit y Initiative (NKF-KDOQI) pub lished in 2014. [facility] MethodistUrine [id number] 14:58:54 Test Item Value Reference Range Interpretation Comments Urine culture (test SEE COMMENT Bacteriu ramírez screen code = 4442895) negative. [facility] MethodistPartial thromboplastin time, [id number] 14:22:11 Test Item Value Reference Range Interpretation Comments PTT (test code = 25.2 23.0- 36.0 [place] [address]-4) unfractionated heparin is61.0-112.0 se conds which corresponds to Anti-Xa0.3-0.7 U/ml. [facility] MethodistProthrombin time with [id number] 14:21:34 Test Item Value Reference Range Interpretation Comments Prothrombin time (test 12.9 11.5- 14.5 sec code = 5902-2) INR (test code = 1.0 The Interna tional 03240-9) Normalized Rati o (INR) is a therapeutic m onitoring tool for patien ts who are stable on oral anticoagulant t herapy. An INR of 2.0-3.0 is suggested for d eep vein thrombosis/pulm onary embolism. [facility] MethodistECG Pre/Post [id number] 12:05:27 Test Item Value Reference Range Interpretation Comments Ventricular rate (test 49 code = 253) Atrial rate (test code 49 = 255) DE interval (test code 236 = 266) QRSD interval (test 96 code = 260) QT interval (test code 454 = 264) QTC interval (test code 410 = 265) P axis 1 (test code = 57 267) QRS axis 1 (test code = 16 268) T wave axis (test code 31 = 270) EKG impression (test Marked sinus code = 273) bradycardia with 1st degree AV block-Abnormal ECG-No previous ECGs available-Electronical ly Signed By Didier Kraft MD ([id number]) on 12/31/2019 12:05:23 PM [facility] [id number] 11:26:27 Test Item Value Reference Range Interpretation Comments WBC (test code = 00630-3) 4.67 4.50- 11.00 k/uL RBC (test code = 75081-1) 4.59 m/uL 4.4-6 HGB (test code = 718-7) 14.8 g/dL 14-18 HCT (test code = 4544-3) 43.7 % 41-51 MCV (test code = 787-2) 95.2 fL 82-100 MCH (test code = 785-6) 32.2 pg 27-34 MCHC (test code = 786-4) 33.9 g/dL 31-37 RDW - SD (test code = 21800-7) 43.3 fL 37-55 MPV (test code = 46653-6) 10.2 fL 8.8-13.2 Platelet count (test code = 201 150- 400 k/uL 52807-7) Nucleated RBC (test code = 0.00 /100 WBC 62174-9) Terence Akers
--- NOTE | 2020-08-17 10:55 | RAD REPORT ---
EXAM DESCRIPTION: CT - Head Brain Wo Cont - 08/17/2020 10:42 am CLINICAL HISTORY: DIZZINESS Headache, drowsiness COMPARISON: HEAD BRAIN W O CONTRAST dated 12/14/2014 TECHNIQUE: All CT scans are performed using dose optimization technique as appropriate and may inclu de automated exposure control or mA/KV adjustment according to patient size. FINDINGS: No intracranial hemorrhage, hydrocephalus or extra-axial fluid collection.No areas of brai n edema or evidence of midline shift. The paranasal sinuses and mastoids are clear. The calvarium is intact. IMPRESSION: No acute intracranial abnormality.
--- NOTE | 2020-08-17 11:01 | RAD REPORT ---
EXAM DESCRIPTION: RAD - Chest Single View - 08/17/2020 10:50 am CLINICAL HISTORY: dizziness Chest pain. COMPARISON: CHEST PA AND LAT 2 VIEW dated 01/26/2015; CHEST SINGLE VIEW dated 12/14/2014 FINDINGS: Portable technique limits examination quality. The lungs are grossly clear. The heart is normal in size. No displaced fractures. IMPRESSION: No acute intrathoracic process suspected.
[2020-08-17 11:11] LABS: Hematocrit 48.3 % (39.6-49.0); RBC Red Blood Cell Count 5.16 M/uL (4.33-5.43)
[2020-08-17 11:12] LABS: Basophils % 0.7 % (0-1.3); Lymphocytes % 16.7 % (15.3-44.8); MPV 8.5 fL (7.6-11.3); Protime INR 0.97
[2020-08-17 11:36] LABS: ALT/SGPT 38 U/L (12-78); AST/SGOT 19 U/L (15-37); Albumin 3.8 g/dL (3.4-5.0); Alkaline Phosphatase 80 U/L (45-117); BUN Blood Urea Nitrogen 12 mg/dL (7-18); Bicarbonate 28 mmol/L (21-32); Bilirubin Direct 0.2 mg/dL (0-0.2); Bilirubin Total 0.6 mg/dL (0.2-1.0); Glucose Level 114 mg/dL (74-106); Magnesium 2.5 mg/dL (1.8-2.4); NT PRO-BNP 34 pg/mL (<125); Potassium 4.1 mmol/L (3.5-5.1); Protein, Total 6.5 g/dL (6.4-8.2); Sodium Level 141 mmol/L (136-145); Troponin (Emerg Dept Use Only) < 0.02 ng/mL (0.0-0.045)
--- NOTE | 2020-08-17 12:51 | RAD REPORT ---
EXAM DESCRIPTION: MRI - Brain Wo Cont - 08/17/2020 12:00 pm CLINICAL HISTORY: Double vision;Dizziness COMPARISON: Head Brain Wo Cont dated 08/17/2020 TECHNIQUE: Sagittal T1-weighted images were obtained along with axial PD, heavily T2-weighted and T2 -FLAIR images. Axial DWI and ADC mapping sequences were also obtained along with coronal heavily T2-w eighted images. FINDINGS: No intracranial hemorrhage, mass or acute infarction. There is no edema or shift of midlin e structures. No extra-axial fluid collections. Bhatti-matter/white matter junction is preserved. Signa l voids are seen as a normal finding in the major intracranial vessels. No globe or orbital content a bnormality. No sella or supra sella abnormality. Patient has no measurable chronic ischemic change or atrophy. Ventricles are normal. Mastoid air cells and paranasal sinuses are clear. IMPRESSION: Negative non-contrast MRI of the Brain.
--- NOTE | 2020-08-17 13:46 | ER ---
Nurse's Notes [facility] Name: Jimi Santillan Age: 59 yrs Sex: Male : 1960 Arrival Date: 08/17/2020 Time: 09:31 Bed 2 Private MD: Diagnosis: Benign paroxysmal vertigo Presentation: 08/17 09:41 Chief complaint: Patient states: woke up this morning feeling lightheaded and thought em he was going to fall forward, then it went away, was at work and had the same feeling, denies N/V, dizziness, CP, SOB. Coronavirus screen: Client denies travel out of the [place] in the last 14 days. Ebola Screen: Patient negative for fever greater than or equal to 101.5 degrees Fahrenheit, and additional compatible Ebola Virus Disease symptoms Patient denies exposure to infectious person. Patient denies travel to an Ebola-affected area in the 21 days before illness onset. No symptoms or risks identified at this time. Initial Sepsis Screen: Does the patient meet any 2 criteria? No. Patient's initial sepsis screen is negative. Does the patient have a suspected source of infection? No. Patient's initial sepsis screen is negative. Risk Assessment: Do you want to hurt yourself or someone else? Patient reports no desire to harm self or others. Onset of symptoms was August 17, 2020. 09:41 Method Of Arrival: Ambulatory em 09:41 Acuity: DUC 3 em Historical: - Allergies: 09:44 PENICILLINS; em - Home Meds: 09:44 losartan 100 mg oral tab 1 tab once daily [Active]; bisoprolol fumarate 5 mg oral tab em 0.5 tab once daily [Active]; simvastatin 40 mg Oral tab [Active]; - PMHx: 09:44 Hypertension; em - PSHx: 09:44 hailey. knee sx; em - Immunization history:: Adult Immunizations up to date. - Social history:: Smoking status: Patient denies any tobacco usage or history of. Screenin:45 Abuse screen: Denies threats or abuse. Nutritional screening: No deficits noted. em Tuberculosis screening: No symptoms or risk factors identified. Fall Risk None identified. Assessment: 09:41 General: Appears in no apparent distress. comfortable, Behavior is calm, cooperative, em appropriate for age, Denies fever. Pain: Denies pain. Neuro: Level of Consciousness is awake, alert, obeys commands, Oriented to person, place, time, situation, Appropriate for age Reports "lightheaded". Cardiovascular: Capillary refill < 3 seconds Patient's skin is warm and dry. Respiratory: Airway is patent Respiratory effort is even, unlabored, Respiratory pattern is regular, symmetrical. GI: Patient currently denies nausea, vomiting. Derm: Skin is intact, is healthy with good turgor, Skin is pink, warm \\T\\ dry. Musculoskeletal: Capillary refill < 3 seconds, Range of motion: intact in all extremities. 10:39 Reassessment: Patient appears in no apparent distress at this time. pt wheeled to CT. em 11:06 Reassessment: Patient appears in no apparent distress at this time. Patient and/or em family updated on plan of care and expected duration. Pain level reassessed. Patient is alert, oriented x 3, equal unlabored respirations, skin warm/dry/pink. 11:38 Reassessment: Patient appears in no apparent distress at this time. wheeled to MRI via em wheelchair. 12:13 Reassessment: returned from MRI. em 12:29 Reassessment: Patient appears in no apparent distress at this time. Patient and/or em family updated on plan of care and expected duration. Pain level reassessed. Patient is alert, oriented x 3, equal unlabored respirations, skin warm/dry/pink. 13:30 Reassessment: Patient appears in no apparent distress at this time. Patient and/or em family updated on plan of care and expected duration. Pain level reassessed. Patient is alert, oriented x 3, equal unlabored respirations, skin warm/dry/pink. Vital Signs: 09:41 BP 160 / 102; Pulse 63; Resp 18; Temp 98.1; Pulse Ox 99% on R/A; Pain 0/10; em 11:05 BP 153 / 95; Pulse 58; Resp 16; Pulse Ox 99% on R/A; em 12:29 BP 155 / 96; Pulse 61; Resp 18; Pulse Ox 99% on R/A; Pain 0/10; em 13:00 BP 162 / 93; Pulse 57; Resp 18; Pulse Ox 99% on R/A; em ED Course: 09:31 Patient arrived in ED. ds1 09:33 Marcelino, Soo, RN is Primary Nurse. ph 09:33 Remi Fernandes MD is Attending Physician. kdr 09:43 Triage completed. em 09:44 Arm band placed on. em 09:45 Patient has correct armband on for positive identification. Bed in low position. Call em light in reach. Pulse ox on. NIBP on. 10:37 EKG done, by ED staff, reviewed by Remi Fernandes MD. em 10:40 CT Head Brain wo Cont In Process Unspecified. EDMS 10:50 XRAY Chest (1 view) In Process Unspecified. EDMS 10:50 Initial lab(s) drawn, by ga, sent to lab. Inserted saline lock: 20 gauge in right em antecubital area, using aseptic technique. Blood collected. 12:01 MRI - Brain Wo Cont In Process Unspecified. EDMS 13:59 No provider procedures requiring assistance completed. IV discontinued, intact, em bleeding controlled, No redness/swelling at site. Pressure dressing applied. Administered Medications: 13:57 Drug: Meclizine 25 mg Route: PO; em 13:59 Follow up: Response: Medication administered at discharge. em Outcome: 13:46 Discharge ordered by . kdr 13:59 Discharged to home ambulatory. em 13:59 Condition: good 13:59 Discharge instructions given to patient, Instructed on discharge instructions, follow up and referral plans. medication usage, Demonstrated understanding of instructions, follow-up care, medications, Prescriptions given X 1. 14:01 Patient left the ED. em Signatures: Dispatcher [employer] EDRemi Lemons MD MD [facility] Jakob Powell, JOSE RN em María Rojas ds1 Soo Marcelino RN RN ph
--- NOTE | 2020-08-17 13:46 | EDPHYS ---
Physician Documentation [facility] Name: Jimi Santillan Age: 59 yrs Sex: Male : 1960 Arrival Date: 08/17/2020 Time: 09:31 Bed 2 Private MD: ED Physician Remi Fernandes HPI: 08/17 15:11 This 59 yrs old Male presents to ER via Ambulatory with complaints of kdr Dizziness, Near Syncope. 15:11 The patient presents with dizziness, lightheadedness, feeling off balance, vertigo. kdr Onset: The symptoms/episode began/occurred suddenly, just prior to arrival. Context: occurred at work, occurred while the patient was walking, just prior to the episode the patient experienced no apparent symptoms. Modifying factors: The symptoms are alleviated by nothing, the symptoms are aggravated by movement of head, standing up, changing position. Associated signs and symptoms: Pertinent positives: nausea, Pertinent negatives: abdominal pain, agitation, ataxia, blurred vision, chest pain, combativeness, confusion, diaphoresis, focal weakness, head injury, headache, near-syncope, numbness, palpitations, , seizure, shortness of breath, syncope, tingling, vomiting. Severity of symptoms: At their worst the symptoms were mild in the emergency department the symptoms have resolved. Patient's baseline: Neuro: alert and fully oriented, Motor: no deficits, Ambulation: walks without assistance, Speech: normal, The patient has a previous history of. The patient has experienced similar episodes in the past, a few times, Last week, the patient had several brief episodes that resolved spontaneously after a few mintues. The patient has not recently seen a physician. Historical: - Allergies: :44 PENICILLINS; em - Home Meds: : losartan 100 mg oral tab 1 tab once daily [Active]; bisoprolol fumarate 5 mg oral tab em 0.5 tab once daily [Active]; simvastatin 40 mg Oral tab [Active]; - PMHx: :44 Hypertension; em - PSHx: :44 hailey. knee sx; em - Immunization history:: Adult Immunizations up to date. - Social history:: Smoking status: Patient denies any tobacco usage or history of. ROS: 15:11 Constitutional: Negative for fever, chills, and weight loss, Eyes: Negative for injury, kdr pain, redness, and discharge, ENT: Negative for injury, pain, and discharge, Neck: Negative for injury, pain, and swelling, Cardiovascular: Negative for chest pain, palpitations, and edema, Respiratory: Negative for shortness of breath, cough, wheezing, and pleuritic chest pain, Abdomen/GI: Negative for abdominal pain, nausea, vomiting, diarrhea, and constipation, Back: Negative for injury and pain, : Negative for injury, bleeding, discharge, and swelling, MS/Extremity: Negative for injury and deformity, Skin: Negative for injury, rash, and discoloration, Psych: Negative for depression, anxiety, suicide ideation, homicidal ideation, and hallucinations, Allergy/Immunology: Negative for hives, rash, and allergies, Endocrine: Negative for neck swelling, polydipsia, polyuria, polyphagia, and marked weight changes, Hematologic/Lymphatic: Negative for swollen nodes, abnormal bleeding, and unusual bruising. 15:11 Neuro: Positive for visual changes, Negative for altered mental status, dizziness, gait disturbance, headache, hearing loss, loss of consciousness, numbness, seizure activity, speech changes, syncope, near syncope, tingling, tinnitus, tremor, visual changes, acute changes. 15:11 Psych: Positive for Negative for anxiety, depression, drug dependence, alcohol dependence, auditory hallucinations, visual hallucinations, homicidal ideation. Exam: 15:11 Constitutional: This is a well developed, well nourished patient who is awake, alert, kdr and in no acute distress. Head/Face: Normocephalic, atraumatic. Eyes: Pupils equal round and reactive to light, extra-ocular motions intact. Lids and lashes normal. Conjunctiva and sclera are non-icteric and not injected. Cornea within normal limits. Periorbital areas with no swelling, redness, or edema. Neck: Trachea midline, no thyromegaly or masses palpated, and no cervical lymphadenopathy. Supple, full range of motion without nuchal rigidity, or vertebral point tenderness. No Meningismus. Chest/axilla: Normal chest wall appearance and motion. Nontender with no deformity. No lesions are appreciated. Cardiovascular: Regular rate and rhythm with a normal S1 and S2. No gallops, murmurs, or rubs. Normal PMI, no JVD. No pulse deficits. Respiratory: Lungs have equal breath sounds bilaterally, clear to auscultation and percussion. No rales, rhonchi or wheezes noted. No increased work of breathing, no retractions or nasal flaring. Abdomen/GI: Soft, non-tender, with normal bowel sounds. No distension or tympany. No guarding or rebound. No evidence of tenderness throughout. Back: No spinal tenderness. No costovertebral tenderness. Full range of motion. Skin: Warm, dry with normal turgor. Normal color with no rashes, no lesions, and no evidence of cellulitis. MS/ Extremity: Pulses equal, no cyanosis. Neurovascular intact. Full, normal range of motion. Psych: Awake, alert, with orientation to person, place and time. Behavior, mood, and affect are within normal limits. 15:11 Eyes: Nystagmus: is not appreciated. 15:11 Neuro: Orientation: is normal, Mentation: is normal, Memory: is normal, Cranial nerves: is grossly normal based on the patient's age. 18:30 ECG was reviewed by the Attending Physician. kdr Vital Signs: 09:41 BP 160 / 102; Pulse 63; Resp 18; Temp 98.1; Pulse Ox 99% on R/A; Pain 0/10; em 11:05 BP 153 / 95; Pulse 58; Resp 16; Pulse Ox 99% on R/A; em 12:29 BP 155 / 96; Pulse 61; Resp 18; Pulse Ox 99% on R/A; Pain 0/10; em 13:00 BP 162 / 93; Pulse 57; Resp 18; Pulse Ox 99% on R/A; em MDM: 13:46 Patient medically screened. kdr 15:11 Data reviewed: vital signs, nurses notes, lab test result(s), radiologic studies. kdr Counseling: I had a detailed discussion with the patient and/or guardian regarding: the historical points, exam findings, and any diagnostic results supporting the discharge/admit diagnosis, lab results, radiology results, the need for outpatient follow up. 08/17 10:31 Order name: Basic Metabolic Panel; Complete Time: 11:57 kdr 08/17 10:31 Order name: CBC with Diff; Complete Time: 11:13 kdr 08/17 10:31 Order name: LFT's; Complete Time: 11:57 kdr 08/17 10:31 Order name: Magnesium; Complete Time: 11:57 kdr 10/15 10:31 Order name: NT PRO-BNP; Complete Time: 11:57 kdr 08/17 10:31 Order name: PT-INR; Complete Time: 11:57 kdr 08/17 10:31 Order name: Troponin (emerg Dept Use Only); Complete Time: 11:57 kdr 08/17 10:31 Order name: XRAY Chest (1 view); Complete Time: 11:12 kdr 08/17 10:31 Order name: EKG; Complete Time: 10:32 kdr 08/17 10:31 Order name: Cardiac monitoring; Complete Time: 10:39 kdr 08/17 10:31 Order name: EKG - Nurse/Tech; Complete Time: 10:39 kdr 08/17 10:31 Order name: CT Head Brain wo Cont; Complete Time: 11:12 kdr 08/17 11:13 Order name: MRI - Brain Wo Cont; Complete Time: 13:40 kdr 08/17 10:31 Order name: IV Saline Lock; Complete Time: 11:03 kdr 08/17 10:31 Order name: Labs collected and sent; Complete Time: 11:03 kdr 08/17 10:31 Order name: O2 Per Protocol; Complete Time: 10:39 kdr 08/17 10:31 Order name: O2 Sat Monitoring; Complete Time: 10:39 kdr EC:30 Rate is 59 beats/min. Rhythm is regular, Sinus bradycardia with No ectopy. QRS [place] is kdr Normal. LA interval is normal. QRS interval is normal. QT interval is normal. Clinical impression: NSR w/ Non-specific ST/T Changes. Administered Medications: 13:57 Drug: Meclizine 25 mg Route: PO; em 13:59 Follow up: Response: Medication administered at discharge. em Disposition: 08/17/20 13:46 Discharged to Home. Impression: Benign paroxysmal vertigo. - Condition is Stable. - Discharge Instructions: Benign Positional Vertigo. - Prescriptions for Meclizine 25 mg Oral Tablet - take 1 tablet by ORAL route every 8 hours As needed; 30 tablet. - Medication Reconciliation Form, Thank You Letter form. - Follow up: Private Physician; When: 2 - 3 days; Reason: If symptoms return, Further diagnostic work-up, Recheck today's complaints, Continuance of care, Re-evaluation by your physician. - Problem is new. - Symptoms are resolved. Signatures: Dispatcher [employer] EDClarence Lemonsin, MD MD kdr Jakob Powell, RN RN em Corrections: (The following items were deleted from the chart) 14:01 13:46 08/17/2020 13:46 Discharged to Home. Impression: Benign paroxysmal vertigo. em Condition is Stable. Forms are Medication Reconciliation Form, Thank You Letter, Antibiotic Education, Prescription Opioid Use. Follow up: Private Physician; When: 2 - 3 days; Reason: If symptoms return, Further diagnostic work-up, Recheck today's complaints, Continuance of care, Re-evaluation by your physician. Problem is new. Symptoms are resolved. kdr
[2020-08-17] MEDS ORDERED: MECLIZINE HCL 12.5 MG TAB ONE (14:07)
[2020-08-17 14:41] VITALS: TEMP 98.1; O2SAT 99
[2020-08-17 14:47] VITALS: BP 162/93
== END 2020-08-17 14:01 | disposition home or self-care (01) ==
LOC: ER 09:28
DX: H81.10 Benign paroxysmal vertigo, unspecified ear (principal); I10 Essential (primary) hypertension; Z88.0 Allergy status to penicillin
CPT/HCPCS: 36415; 70450; 70551; 71045; 80048; 80076; 83735; 83880; 84484; 85025; 85610; 93005; 99284